=== PATIENT | male | born 1985 | race Caucasian/White ===

== ENCOUNTER 2025-06-19 08:11 | Day surgery (SDC) | payer OTHER ==
[~2025-06-19] VITALS: Ht 165.1 cm; Wt 81.2 kg
[~2025-06-19 08:11] MED LIST: AMIT10TA11 PO; SUMA50TA2 PO
[2025-06-19] MEDS ORDERED: LR 1,000 ML IV SCH (09:00)
[2025-06-19] MEDS ORDERED: LIDOCAINE 2% 100 MG/5 ML SDV (FOR ANES.) As Ordered ONE (09:14)
[2025-06-19] MEDS ORDERED: MIDAZOLAM INJ 2 MG/2 ML VIAL As Ordered ONE (09:14)
[2025-06-19] MEDS: ceFAZolin SOD 2 GM IV ONCE IV ONE (09:50)
[2025-06-19] MEDS: LIDOCAINE 1% MDV 20 ML VIAL As Ordered ONE (10:02)
[2025-06-19 10:47] VITALS: BP 116/77; TEMP 98.2; O2SAT 97
== END 2025-06-19 10:53 | disposition home or self-care (01) ==
LOC: M SDC 08:11
PROVIDERS: ATTEND Podiatrist Foot & Ankle Surgery
DX: M67.471 Ganglion, right ankle and foot (principal); G47.30 Sleep apnea, unspecified; G43.909 Migraine, unspecified, not intractable, without status migrainosus; Z79.899 Other long term (current) drug therapy; Z87.891 Personal history of nicotine dependence; Z90.89 Acquired absence of other organs
CPT/HCPCS: 28090; 88304; J0665; J0688; J2250; J3010